=== PATIENT | female | born 1980 | race Caucasian/White ===

== ENCOUNTER 2017-06-02 06:00 | Inpatient (IN) | payer OTHER ==
[2017-06-02] MEDS ORDERED: OLIVE OIL 118 ML BTL MISC PRN (06:47)
[2017-06-02] MEDS ORDERED: LR 1,000 ML IV PRN (06:47)
[2017-06-02] MEDS ORDERED: EPSOM SALT 454 GM TP PRN (06:47)
[2017-06-02] MEDS ORDERED: TERBUTALINE SULFATE 1 MG/ML VIAL IV PRN (06:47)
[2017-06-02] MEDS ORDERED: OXYTOCIN 20 UNIT in LR 1,000 ML IV PRN (06:47)
[2017-06-02 06:59] LABS: PLATELET COUNT 146 10^3/uL (150-400)
[2017-06-02] MEDS ORDERED: LR 500 ML IV PRN (07:36)
[2017-06-02] MEDS ORDERED: OXYTOCIN 30 UNIT in NS 500 ML IV SCH (07:45)
[2017-06-02] MEDS: CLINDAMYCIN 900 MG/DEXTROSE 50 ML IV SCH ×3 (09:35→23:52)
--- NOTE | 2017-06-02 10:37 | GHP ---
[f rep st] PREOP HISTORY AND PHYSICAL DATE OF ADMISSION: 06/02/2017 HISTORY UPON ADMISSION: The patient is a 37-year-old, G1, P0, at 40 weeks and 6 days with an estimat ed due date of 05/27/2017 established by her last menstrual period, consistent with a 1st trimester u ltrasound. Patient at 40 weeks and 6 days, presenting for postdates induction. On last cervical exa m, the patient was 3 cm dilated, 70% effaced, and therefore did not have any cervical ripening. She presents in the morning for Pitocin induction. The patient with good movement. No leakage of fluid and no bleeding. The patient has been having Kalen Archer contractions. The patient was note d to be GBS positive and knows that she will be getting IV antibiotics. CARE: The patient has been followed with [facility] since 11 weeks gestation. T he patient had a routine 1st trimester testing that was all normal except for identifying an alpha th alassemia carrier trait. The patient's was checked and was negative. The patient's ultrasou nd at 20 weeks was normal with a posterior placenta and normal anatomy. Estimated weight was the 80t h percentile with a blood type negative, the patient did receive RhoGAM in March. LABS: Maternal blood type O negative with negative antibody screen. RPR nonreactive. Rube lla immune. Hepatitis B surface antigen negative. HIV negative. Urinalysis and culture was negativ e. Pap smear normal. Gonorrhea and chlamydia were negative. Verifi testing was negative with negat tonie MSAFP. Hematocrit was 36 to 39%. 1-hour Glucola was normal. The patient received RhoGAM after a negative antibody check at 28 weeks. GBS culture was positive. PAST MEDICAL HISTORY: Migraines diagnosed at age 23. PAST SURGICAL HISTORY: Only odontectomy. ALLERGIES: The patient with a family history of penicillin allergy. CURRENT MEDICATIONS: Only vitamins with increased iron diet. SOCIAL HISTORY: The patient is , lives with her . The patient is a nonsmoker. No alc ohol or drug use. PHYSICAL EXAM: GENERAL: Upon admission, the patient is a well-developed, well-nourished white femal e in no distress. The patient is afebrile with normal vital signs. See nursing documentation for fu ll details. heart tones show category 1 tracing with baseline in the 140s with good accelerati ons and variability. After rupture of membranes, small variables are noted, but still good variabili ty. Pelvic exam shows 3 cm dilated, 80% effaced, at -1 station. Artificial rupture of membranes per formed at 0946 with scant fluid obtained that appears to be meconium stained. EXTREMITIES: Nontende r, no edema. ASSESSMENT: Intrauterine at 40 weeks and 6 days for induction for postdates. The patient with alpha thalassemia carrier status, but negative father of the baby. Rh negative and received Rho NORMA at 28 weeks. GBS positive and has been started on clindamycin with a penicillin allergy noted in the family. PLAN: The patient is on Pitocin and will continue to increase. Will watch heart tones with so me meconium staining that most likely is due to postdates. Expect vaginal delivery. /[id number]/MODL
[2017-06-02] MEDS ORDERED: BUPIVACAINE 0.25% 30 ML SDV ONE (11:09)
[2017-06-02] MEDS ORDERED: fentaNYL 100 MCG/2 ML INJ ONE (11:09)
[2017-06-02] MEDS ORDERED: PHENYLEPHRINE HCL 100 MCG/ML SYR ONE (11:10)
[2017-06-02] MEDS ORDERED: BUPIVACAINE EP SCH (11:30)
[2017-06-02] MEDS ORDERED: [UNRECOGNIZED DRUG - OTHER] EP SCH (11:30)
[2017-06-02] MEDS ORDERED: fentaNYL 2MCG/ML/BUP 0.1% RTU 100 ML BAG EP SCH (11:30)
[2017-06-02] MEDS ORDERED: FENTANYL EP SCH (11:30)
[2017-06-02] MEDS ORDERED: NARCOTIC DRIP BAG-TOTAL ALL TYPES EP PRN (11:30)
[2017-06-02] MEDS ORDERED: METOCLOPRAMIDE 10 MG/2 ML VIAL IVP PRN (12:14)
[2017-06-02] MEDS ORDERED: ONDANSETRON 4 MG/2 ML VIAL IVP PRN (12:14)
[2017-06-02] MEDS ORDERED: PHENYLEPHRINE HCL 100 MCG/ML SYR IVP PRN (12:14)
--- NOTE | 2017-06-02 12:14 | PREANESOB ---
Obstetric Pre-Anesthesia Info - General Info : 1 Para: 0 SEUN: 05/27/17 Gestational Age: 40 week(s) and 6 day(s) Anesthesia Allergies/Adverse Reactions: Allergy/AdvReac Type Severity Reaction Status Date / Time Penicillins Allergy Verified 06/02/17 06:49 Home Medications: Medication Instructions Recorded Cephalexin 500 mg PO BID #14 capsule 04/10/16 Phenazopyridine HCl 200 mg PO TID #6 tab 04/10/16 [Phenazopyridine] Visit Medications: Generic Name Dose Route Start Last Admin Trade Name Freq PRN Reason Stop Dose Admin Fentanyl/Bupivacaine HCl 0 ml 06/02/17 11:30 Fentanyl/Bupivacaine/Ns 2 Mcg/Ml 0.1% (Premix EP 06/12/17 11:29 AD ARI Lactated Ringer's 1,000 mls @ 0 mls/hr 06/02/17 06:47 06/02/17 08:19 Lr IV 06/03/17 06:46 1,000 mls PRN PRN Administration SEE PROTOCOL CONDITIONS Protocol Per Protocol Oxytocin 20 unit/ Lactated 1,002 mls @ 150 mls/hr 06/02/17 06:47 Ringer's IV PRN PRN Post- bleeding Lactated Ringer's 500 mls @ 500 mls/hr 06/02/17 07:36 Lr IV 06/03/17 07:36 PRN PRN Maternal Hypotension Oxytocin 30 unit/ Sodium 503 mls @ 0 mls/hr 06/02/17 07:45 06/02/17 08:18 Chloride IV 11/29/17 07:44 503 mls CONT ARI Administration Protocol Per Protocol Clindamycin Phosphate/Dextrose 50 mls @ 100 mls/hr 06/02/17 09:00 06/02/17 09 :35 Cleocin 900 Mg (Premix) IV 07/02/17 08:59 50 mls Q8HRS ARI Administration Protocol Ibuprofen 600 mg 06/02/17 06:47 Motrin PO 11/29/17 06:46 Q6HRS PRN post , inflammation Magnesium Sulfate 454 gm 06/02/17 06:47 Epsom Salt TP 11/29/17 06:46 Q1H PRN perineal discomfort Miscellaneous Medication 1 ea 06/02/17 11:30 Narcotic Drip-Total All Types EP 11/29/17 11:29 PRN PRN Pyxis removal Java Oil 118 ml 06/02/17 06:47 Sweet Oil MISC 11/29/17 06:46 ONCE PRN perineal massage Terbutaline Sulfate 0.25 mg 06/02/17 06:47 Brethine IV 11/29/17 06:46 ONCE PRN Tachysystole Discontinued Medications Generic Name Dose Route Start Last Admin Trade Name Freq PRN Reason Stop Dose Admin Bupivacaine HCl Confirm 06/02/17 11:09 Sensorcaine 0.25% Sdv Administered 06/02/17 11:10 Dose 30 ml .ROUTE .STK-MED ONE Fentanyl Confirm 06/02/17 11:09 Sublimaze Administered 06/02/17 11:10 Dose 100 mcg .ROUTE .STK-MED ONE Clindamycin Phosphate/Dextrose 50 mls @ 100 mls/hr 06/02/17 14:00 Cleocin 900 Mg (Premix) IV 07/02/17 13:59 Q8HRS ARI Protocol Fentanyl/Bupivacaine HCl 100 100 mls @ 0 mls/hr 06/02/17 11:30 ml/ IV Solution EP 06/12/17 11:29 AD ARI As Directed Phenylephrine HCl Confirm 06/02/17 11:10 Neosynephrine Administered 06/02/17 11:11 Dose 1,000 mcg .ROUTE .STK-MED ONE - Anesthesia History Response to Local Anesthetics: Normal Anesthesia & Operative History: No Prior Problems Family Anesthesia History: Negative - Social History Substance Use/Abuse: Denies - Vital Signs Height/Weight (Nursing): Height 170.18 cm Weight 93.44 kg - Focused Exam Neck exam: FROM Mallampati Score: Class 1 Mouth exam: normal dental/mouth exam Pulmonary: no respiratory distress Cardiovascular: regular rate and rhythym Labs: 06/02/17 06:30 Patient ABO/Rh O NEGATIVE 06/02/17 06:30 - Plan Consent Signed and on Chart: Yes Patient/Guardian Understands and Agrees to Plan: Yes
--- NOTE | 2017-06-02 12:18 | OBPROG ---
Labor Progress Note Assessment/Plan: Assessment: IUP at 40w6d induction for post dates Plan: on pit and ERWIN now after SROM - light mec GBS on Clinda 06/02/17 12:12 Subjective/Intrapartum Course: 06/02/17 12:18 Pt getting much more comfie with ERWIN. excited about exam Objective: 06/02/17 06:30 Patient ABO/Rh O NEGATIVE 06/02/17 06:30 - SVE Dilation (cm): 9 Effacement (%): 90 Station: -1 Membranes: AROM Amniotic Fluid Color: Meconium Stained - Contraction Pattern Assessment Current Contraction Pattern: Regular (q 2-3 on 8 mu/min pit) - FHR Assessment Briggs FHR (bpm): 120 FHR Pattern Variability: Moderate FHR Category: 2 (small variables - GBTBV) Oxytocin Orders Assessment - Pre-Induction/Augmentation Assessment Gestational Age: 40 week(s) and 6 day(s) ICD10 Worksheet Patient Problems: Problems Problem Status Onset Post-dates Acute - ICD10 Problem Qualifiers (1) Post-dates
[2017-06-02] MEDS ORDERED: LR 500 ML IV SCH (12:30)
[2017-06-02] MEDS ORDERED: fentaNYL 2MCG/ML/BUP 0.1% RTU 100 ML EP SCH (12:30)
[2017-06-02] MEDS ORDERED: CLINDAMYCIN 900 MG/DEXTROSE 50 ML IV SCH (14:00)
[2017-06-02] MEDS ORDERED: ACETAMINOPHEN 325 MG TAB PO PRN (15:22)
[2017-06-02] MEDS ORDERED: HYDROCODONE/APAP 5/325 TAB PO PRN (15:22)
--- NOTE | 2017-06-02 15:26 | OBDEL ---
Info Type: Vaginal Presentation at Delivery: Vertex L&D Analgesia/Anesthesia Type: Epidural GBS+: Yes Antibiotic Used for + GBS: Clindamycin Intrapartum Medications: Generic Name Dose Route Start Last Admin Trade Name Freq PRN Reason Stop Dose Admin Lactated Ringer's 1,000 mls @ 0 mls/hr 06/02/17 06:47 06/02/17 08:19 Lr IV 06/03/17 06:46 1,000 mls PRN PRN Administration SEE PROTOCOL CONDITIONS Protocol Per Protocol Oxytocin 30 unit/ Sodium 503 mls @ 0 mls/hr 06/02/17 07:45 06/02/17 08:18 Chloride IV 11/29/17 07:44 503 mls CONT ARI Administration Protocol Per Protocol Clindamycin Phosphate/Dextrose 50 mls @ 100 mls/hr 06/02/17 09:00 06/02/17 09 :35 Cleocin 900 Mg (Premix) IV 07/02/17 08:59 50 mls Q8HRS ARI Administration Protocol - Care Provider Event Crew Technician/STATIONARY STEAM ENGINEER: Ansley Barakat - Hospital Course Intrapartum: 06/02/17 12:18 Pt getting much more comfie with ERWIN. excited about exam Indications for Delivery: Elective Vaginal Delivery - Delivery Provider Delivery Physician/CNM: Krystina Estrada - Labor and Delivery Onset of Contractions Date: 06/02/17 Onset of Contractions Time: 09:46 Onset of Contractions Type: Induced Rupture of Membranes Date: 06/02/17 Rupture of Membranes Time: 09:45 Rupture of Membranes Type: Artificial Amniotic Fluid Color: Meconium Stained Dilation Complete Date: 06/02/17 Dilation Complete Time: 13:30 Placenta Delivery Date: 06/02/17 Placenta Delivery Time: 15:03 Total Hours of Labor: 5 Laceration: Other (Specify) (superficial stretch tears on post forchette) Vaginal Sponge Count Correct: Yes Vaginal Needle Count Correct: Yes Vaginal Sweep Performed: Yes EBL: 350 Delivery Events: Nuchal Cord (x1 loose and reduced) Delivery Comment: variables with pushing with GBTBV and accels - Medications Labor Augmentation/Induction Methods Used: Pitocin (up to 10) Labor Augmentation/Induction Indication: Post Dates Orange Data SEUN: 05/27/17 Gestational Age: 40 week(s) and 6 day(s) Briggs Delivery Date: 06/02/17 Delivery Time: 14:58 Sex of : Female (Daniella) Score (1 Min): 8 Score (5 Min): 9 ICD10 Worksheet Patient Problems: Problems Problem Status Onset (spontaneous vaginal delivery) Acute - ICD10 Problem Qualifiers (1) Post-dates
[2017-06-02] MEDS: IBUPROFEN 600 MG TAB PO PRN ×2 (17:00→23:02)
[2017-06-02] MEDS: DOCUSATE SODIUM 100 MG CAP PO PRN (23:02)
[2017-06-03] MEDS: CLINDAMYCIN 900 MG/DEXTROSE 50 ML IV SCH (06:42)
[2017-06-03] MEDS: IBUPROFEN 600 MG TAB PO PRN ×3 (06:42→20:17)
[2017-06-03] MEDS: DOCUSATE SODIUM 100 MG CAP PO PRN ×2 (09:08→20:17)
--- NOTE | 2017-06-03 11:47 | OBPP ---
Progress Note Assessment/Plan: Assessment: 1) s/p PPD # 1 - pt is stable 2) Anemia, slight- pt is asymptomatic 3) Rh negative - RhoGam eval Plan: Continue routine pp care Encourage ambulation is working with pt-shield on L nipple Plan for d/c home in am 06/0406/03/17 11:47 Subjective/ Course: 06/03/17 11:43 Pt seen and examined. Doing well with no complaints. She is having pain with BF , working with -now using a shield. Mild cramping. Mod lochia. She is OOB, nikolas reg diet, voiding and passing flatus. No BM yet. Objective: 06/03/17 06:30 Patient ABO/Rh O NEGATIVE 06/02/17 17:05 Temp Pulse Resp BP Pulse Ox 36.8 C 85 14 111/66 94 06/03/17 10:06 06/03/17 10:06 06/03/17 10:06 06/03/17 10:06 06/03/17 10:06 Uterine Position/Fundal Height: Umbilicus -2 Uterine Tone: Firm Physical Exam - Physical Exam Respiratory: lungs clear, normal breath sounds Cardiac/Chest: regular rate, rhythm Abdomen: normal bowel sounds, non-tender, soft, flatus (+) Extremities: non-tender, normal inspection Skin: normal color, warm/dry Neuro/Psych: alert, normal mood/affect, oriented x 3
[2017-06-03 22:01] VITALS: RESP 18
[2017-06-04 09:20] VITALS: BP 105/68; PULSE 76; TEMP 98; O2SAT 95
[2017-06-04] MEDS: IBUPROFEN 600 MG TAB PO PRN (09:36)
[2017-06-04] MEDS: DOCUSATE SODIUM 100 MG CAP PO PRN (09:37)
--- NOTE | 2017-06-04 10:56 | OBPP ---
Progress Note Assessment/Plan: Assessment: ppd# 2 s/p uncomplicated post course breast feeding rh negative - baby rh positive rhogam given Plan: routine post care and discharge instructions 06/04/17 10:55 Subjective/ Course: 06/03/17 11:43 Pt seen and examined. Doing well with no complaints. She is having pain with BF , working with -now using a shield. Mild cramping. Mod lochia. She is OOB, nikolas reg diet, voiding and passing flatus. No BM yet. 06/04/17 10:56 patient is doing well. pain is well controlled. normal lochia. working on breast feeding. denies headache and changes in vision. ambulating. swelling is improving. Objective: 06/03/17 06:30 Patient ABO/Rh O NEGATIVE 06/02/17 17:05 Temp Pulse Resp BP Pulse Ox 36.6 C 76 18 105/68 95 06/04/17 09:18 06/04/17 09:18 06/04/17 09:18 06/04/17 09:18 06/04/17 09:18 Physical Exam - Physical Exam Neck: non-tender, full range of motion Respiratory: chest non-tender, lungs clear, normal breath sounds Cardiac/Chest: normal peripheral pulses, regular rate, rhythm Abdomen: normal bowel sounds, non-tender Extremities: normal range of motion, non-tender, normal inspection, normal capillary refill Skin: normal color, warm/dry Neuro/Psych: no motor/sensory deficits, alert, normal mood/affect, oriented x 3
--- NOTE | 2017-06-04 11:02 | OBGCSDC ---
General Delivery Information - General Info : 1 Para: 1 Abortions: 0 Type: Vaginal L&D Analgesia/Anesthesia Type: Epidural Admission Date: 06/02/17 Labs: Patient ABO/Rh O NEGATIVE 06/02/17 17:05 Hct 37.7 % (38.0-47.0) L 06/03/17 06:30 - Hospital Course Antepartum: 06/04/17 10:59 initiated care at [facility] at 11 weeks. dated by lmp consistent with 11 week ultrasound. arcuate uterus. hx migraines. tdap and flu shot in . GBS positive. induction of labor at 40 6/7 Intrapartum: 06/02/17 12:18 Pt getting much more comfie with ERWIN. excited about exam : 06/03/17 11:43 Pt seen and examined. Doing well with no complaints. She is having pain with BF , working with -now using a shield. Mild cramping. Mod lochia. She is OOB, nikolas reg diet, voiding and passing flatus. No BM yet. 06/04/17 10:56 patient is doing well. pain is well controlled. normal lochia. working on breast feeding. denies headache and changes in vision. ambulating. swelling is improving. Vaginal - Delivery Provider Delivery Physician/CNM: Krystina Estrada - Diagnosis Labor: Induced Rupture of Membranes Type: Artificial Amniotic Fluid Color: Meconium Stained Laceration: Other (Specify) (superficial stretch tears on post forchette) Delivery Events: Nuchal Cord (x1 loose and reduced) - Delivery EBL: 350 [place] Data SEUN: 05/27/17 Gestational Age: 41 week(s) and 1 day(s) Briggs Delivery Date: 06/02/17 Delivery Time: 14:58 Sex of : Female Score (1 Min): 8 Score (5 Min): 9 Discharge Information - Discharge Information Condition: Good Instruction/Follow Up: Four Weeks (post mood check), Six Weeks
== END 2017-06-04 13:15 | disposition home or self-care (01) | DRG 775 ==
LOC: FLD 06:18 → FOB 17:54
PROVIDERS: ADMIT Advanced Practice Midwife; ATTEND Obstetrics & Gynecology
PROC: 3E033VJ Introduction of Other Hormone into Peripheral Vein, Percutaneous Approach (ICD-10-PCS; principal; 2017-06-02)
PROC: 10E0XZZ Delivery of Products of Conception, External Approach (ICD-10-PCS; principal; 2017-06-02)
DX: O48.0 Post-term pregnancy (principal); O77.0 Labor and delivery complicated by meconium in amniotic fluid; O69.9XX0 Labor and delivery complicated by cord complication, unspecified, not applicable or unspecified; O99.820 Streptococcus B carrier state complicating pregnancy; O71.82 Other specified trauma to perineum and vulva; Z3A.41 41 weeks gestation of pregnancy; Z37.0 Single live birth
CPT/HCPCS: J2370; J3010; J3105

== ENCOUNTER → 2017-06-21 | Outpatient (CLI) | payer OTHER | LOC: FLACT 12:58 | PROVIDERS: ATTEND Obstetrics & Gynecology | DX: Z39.1 Encounter for care and examination of lactating mother (principal) | CPT/HCPCS: G0463 ==